=== PATIENT | male | born 1955 | race Two or more races ===

== ENCOUNTER 2016-11-14 07:14 | Emergency (ER) | payer BC, OTHER ==
[2016-11-14] MEDS ORDERED: CLINDAMYCIN PHOSPHATE 150 MG/ML VIAL IM ONE (08:12)
--- NOTE | 2016-11-14 08:12 | ERNOTE ---
Integumentary HPI - Narrative Date of Service: 11/14/16 - General Presenting Symptoms: insect bite Time Seen by Provider: 11/14/16 07:55 Source: patient Exam Limitations: no limitations - Immun/Allergies/Home Medications Immunizations: IMMUNIZATION HX Immunizations Up to Date Yes Allergies/Adverse Reactions: Allergies Allergy/AdvReac Type Severity Reaction Status Date / Time penicillin V Allergy Verified 11/14/16 07:23 Home Medications: HOME MEDICATIONS Clindamycin HCl [Cleocin HCl] 300 mg PO QID #40 capsule 11/14/16 [Last Taken Unknown] - History of Present Illness Narrative: Patient presents to the ED for a bite on his leg that he thinks is infected. He relates that he hgets bites frequently. Wednesday he noticed a bite on his left upper inner thigh. It has subsequently gotten more red and he was concerned it was infected. He has been using ice. No fever. no N/T/W. No abdominal pain. No CP or SOB. No drainage Location: Reports: other - left thigh Quality: Reports: painful Severity: moderate Exposure: Reports: no cause identified Modifying Factors - (Improves): Reports: nothing Modifying Factors - (Worsens): Reports: nothing Associated Symptoms: Denies: blisters, hives, petechiae, fever, headache Prior Treatment: Denies: recently seen Review of Systems - Review of Systems Constitutional: Absent: fever Respiratory: Absent: shortness of breath Cardiology: Absent: chest pain Gastrointestinal/Abdominal: Absent: vomiting, abdominal pain Genitourinary: Absent: dysuria - Patient's Past Medical History Patient History - Medical: No pertinent hx Patient History - Cardiac/Respiratory: No pertinent hx Patient History - Cancer: No Hx of Cancer Patient History - Surgical Procedures: No surgical history Patient History - Other: None - Social History Living Situations: home Psych History: No pertinent hx Alcohol Use: none Drug Use: none - Immunizations Immunizations Up to Date: Yes Physical Exam - Physical Exam General Appearance: Present: alert, no apparent distress Head Exam: Present: normal inspection, no evidence of injury Eye Exam: Normal inspection: bilateral Ears, Nose, Throat: Present: normal ENT inspection Neck: Present: normal inspection Respiratory: Present: no respiratory distress Cardiovascular/Chest: Present: regular rate, rhythm Gastrointestinal/Abdominal: Present: normal bowel sounds, nontender, nondistended. Absent: tenderness Back Exam: Present: normal range of motion Extremity Exam: Present: other - 8cm erythema left medial thigh. There is no drainage. There is no clear skin abscess. This appears to be a cellulitis without abscess. Nothing to suggest nec fasc or sepsis/toxicity. Nothing I can drain at this time. No joint involvement. No allergic reaction or FB noted. Neurological Exam: Present: alert, normal mood/affect, no motor/sensory deficits Skin Exam: Present: other - apparent cellulitis left thigh. ED Progress - Vital Signs Patient's Vital Signs:: I have reviewed the patient's vital signs. Vital Signs: Vital Signs 11/14/16 07:17 Temperature 35.8 C L Pulse Rate 83 Respiratory 12 Rate Blood Pressure 156/93 O2 Sat by Pulse 95 Oximetry - Progress/Reassessment Chief Complaint: Insect Bite Progress Note-Subjective: 11/14/16 08:07 Nothing to drain at this time. No suggestion of nec fasc or sepsis. Nothign to suggest DVT. Clinically cellulitis. ABx and close f/u. I discussed warning signs and reasons to return as well as the need for close f/u. Departure Clinical Impression: Cellulitis - Departure Disposition: [facility] Condition: Stable Instructions: Cellulitis, Adult, [id number] Additional Instructions: Antibiotics as directed. FLuids. Follow-up wednesday for a re-check. Return for increased redness, drainage, abscess development, numbness, tingling, weakness, fever, vomiting or if your condition worsens or changes in any way. Referrals: Truman Matute MD [Primary Care Provider] - Prescriptions: Clindamycin HCl [Cleocin HCl] 300 mg PO QID #40 capsule
[2016-11-14 08:20] VITALS: BP 154/91
== END 2016-11-14 08:29 | disposition home or self-care (01) ==
LOC: ER 07:14
DX: L03.116 Cellulitis of left lower limb (principal)